=== PATIENT | female | born 2000 ===

== ENCOUNTER → 2024-04-07 | Outpatient (CLI) | payer BC ==
[2024-04-07 15:47] LABS: Free Thyroxine 1.22 ng/dL (0.70-1.60); Thyroid Stimulating Hormone 0.423 uIU/mL (0.360-4.800); Triiodothyronine, Free 2.88 pg/mL (2.18-3.98)
== END | disposition home or self-care (01) ==
LOC: LAB 13:53 → LAB SHORT 13:53
PROVIDERS: Internal Medicine
DX: Z13.1 Encounter for screening for diabetes mellitus (principal); R79.89 Other specified abnormal findings of blood chemistry
CPT/HCPCS: 83036; 84439; 84443; 84481